=== PATIENT | female | born 1985 | race Caucasian/White ===

== ENCOUNTER 2017-10-12 08:25 | Emergency (ER) | payer MEDICAID, OTHER ==
[2017-10-12] MEDS ORDERED: OXYCODONE-ACETAMINOPHEN 5-325 MG TABLET PO ONE (09:36)
[2017-10-12] MEDS ORDERED: PREDNISONE 20 MG TABLET PO ONE (09:36)
--- NOTE | 2017-10-12 09:42 | ER Document Report ---
HPI - HPI Patient complains to provider of: Left hip pain Onset: Other - 2-3 days Onset/Duration: Persistent Quality of pain: Sharp Pain Level: 3 Context: Patient states she developed chronic left hip pain after her last due to pubic symphysis dysfunction. Patient denies any new injury. Patient states she has a low back pain that radiates to left hip and down the lateral aspect of her left thigh. Patient denies any urinary retention or incontinence. Patient states that pain is in typical location of where she has had chronic pain in the past although it seems more severe this time. Patient states that she was recently cleaning a lot due to the holidays and feels that this activity aggravated her chronic pain. Associated Symptoms: Other - Low back, left hip pain Exacerbated by: Movement Relieved by: Denies Similar symptoms previously: Yes Recently seen / treated by doctor: No - ROS ROS below otherwise negative: Yes Systems Reviewed and Negative: Yes All other systems reviewed and negative - CONSTITUTIONAL Constitutional: DENIES: Fever, Chills - EENT EENT: DENIES: Sore Throat, Ear Pain, Eye problems - NEURO Neurology: DENIES: Headache, Weakness, Vision blurred, Dizzinesss / Vertigo - CARDIOVASCULAR Cardiovascular: DENIES: Chest pain - RESPIRATORY Respiratory: DENIES: Trouble Breathing, Coughing - GASTROINTESTINAL Gastrointestinal: DENIES: Abdominal Pain, Black / Bloody Stools - URINARY Urinary: DENIES: Dysuria - MUSCULOSKELETAL Musculoskeletal: REPORTS: Extremity pain - left hip and thigh, Back Pain - DERM Skin Color: Normal Skin Problems: None Past Medical History - General Information source: Patient - Social History Smoking Status: Never Smoker Chew tobacco use (# tins/day): No Frequency of alcohol use: None Drug Abuse: None Occupation: [employer] Family History: Reviewed & Not Pertinent Patient has suicidal ideation: No Patient has homicidal ideation: No Renal/ Medical History: Denies: Hx Peritoneal Dialysis Musculoskeltal Medical History: Reports Other - Pubic symphysis dysfunction Psychiatric Medical History: Reports: Hx Anxiety, Hx Bipolar Disorder, Hx Depression Surgical Hx: Negative - Immunizations Hx Diphtheria, Pertussis, Tetanus Vaccination: Yes Vertical Provider Document - CONSTITUTIONAL Agree With Documented VS: Yes Exam Limitations: No Limitations General Appearance: WD/WN, No Apparent Distress Notes: PHYSICAL EXAMINATION: GENERAL: Well-appearing, well-nourished and in no acute distress. HEAD: Atraumatic, normocephalic. EYES: sclera clear, anicteric, conjunctiva are normal. ENT: nares patent, Moist mucous membranes. NECK: Normal range of motion, supple no lymphadenopathy LUNGS: respirations unlabored HEART: Regular rate and rhythm without murmurs EXTREMITIES: Left anterior and lateral hip joint tenderness. Tenderness increases with left hip abduction. No dislocation. BACK: left lower lumbar paraspinal tenderness, no midline tenderness, no deformities or step-offs. No CVA tenderness. NEUROLOGICAL: Cranial nerves grossly intact. Normal speech, normal gait. No saddle anesthesia. PSYCH: Normal mood, normal affect. SKIN: Warm, Dry, normal turgor, no rashes or lesions noted. - INFECTION CONTROL TRAVEL OUTSIDE OF THE [place] IN LAST 30 DAYS: No - RESPIRATORY O2 Sat by Pulse Oximetry: 100 Course - Re-evaluation Re-evalutation: 10/12/17 09:37 The patient presents with low back pain without signs of spinal cord compression , cauda equina syndrome, infection, aneurysm, or other serious etiology. The patient is neurologically intact. Given the extremely risk of these diagnoses further testing and evaluation for these possibilities does not appear to be indicated at this time. Patient has been instructed to return if the symptoms worsen or change in any way. - Vital Signs Vital signs: Temp Pulse Resp BP Pulse Ox 98.5 F 82 16 107/72 100 10/12/17 08:29 10/12/17 08:29 10/12/17 08:29 10/12/17 08:29 10/12/17 08:29 Discharge - Discharge Clinical Impression: hx pubic symphysis dysfunction Radiculopathy Qualifiers: Spinal region: lumbosacral Qualified Code(s): M54.17 - Radiculopathy, lumbosacral region Condition: Stable Disposition: HOME, SELF-CARE Instructions: Family Physicians / Practices, Low Back Pain ([facility]), Oral Narcotic Medication ([facility]), Radiculopathy ([facility]), Steroid Medication Additional Instructions: Return immediately for any new or worsening symptoms Followup with your primary care provider, call tomorrow to make a followup appointment Do not take the pain medication with your Klonopin, take one medication or any other, not both medications together Follow-up with an network applications specialist for further evaluation Prescriptions: Oxycodone HCl/Acetaminophen [Percocet 5-325 mg Tablet] 1 tab PO ASDIR PRN #15 tablet PRN Reason: Prednisone [Deltasone 20 mg Tablet] 3 tab PO DAILY 4 Days tablet Forms: Return to Work Referrals: [facility] [Provider Group] - Follow up tomorrow
[2017-10-12 10:42] VITALS: BP 117/75
== END 2017-10-12 10:42 | disposition home or self-care (01) ==
LOC: ER 08:25
DX: M54.17 Radiculopathy, lumbosacral region (principal); M25.552 Pain in left hip; M54.5 Low back pain; M79.605 Pain in left leg
CPT/HCPCS: 99283; J7512

== ENCOUNTER 2019-09-12 09:53 | Emergency (ER) | payer SELFPAY ==
[2019-09-12] MEDS ORDERED: HYDROCODONE/ACETAMINOPHEN 5-325 MG TABLET PO ONE (10:26)
--- NOTE | 2019-09-12 10:27 | ER Document Report ---
ED Medical Screen (RME) - General Chief Complaint: Abscess Stated Complaint: POSSIBLE ABSCESS Time Seen by Provider: 09/12/19 10:22 Notes: Patient is a 34-year-old female presents emergency department with a chief complaint of right shoulder pain. Patient states that about 4 days ago she noticed that she had a knot on her back and the area has progressively gotten bigger. She also noticed some redness. She denies any fevers, body aches, chills or any other symptoms. Exam: Erythema and edema noted to right posterior shoulder. I have greeted and performed a rapid initial assessment of this patient. A comprehensive ED assessment and evaluation of the patient, analysis of test results and completion of medical decision making process will be conducted by an additional ED providers. TRAVEL OUTSIDE OF THE [place] IN LAST 30 DAYS: No - Related Data Allergies/Adverse Reactions: No Known Allergies Allergy (Verified 10/12/17 08:32) Past Medical History Renal/ Medical History: Denies: Hx Peritoneal Dialysis Psychiatric Medical History: Reports: Hx Anxiety, Hx Bipolar Disorder, Hx Depression - Immunizations Hx Diphtheria, Pertussis, Tetanus Vaccination: Yes Physical Exam - Vital signs Vitals: Temp Pulse Resp BP Pulse Ox 98.0 F 97 16 98/65 L 98 09/12/19 10:09/12/19 10:00 09/12/19 10:09/12/19 10:00 09/12/19 10:00 Course - Vital Signs Vital signs: Temp Pulse Resp BP Pulse Ox 98.0 F 97 16 98/65 L 98 09/12/19 10:09/12/19 10:00 09/12/19 10:00 09/12/19 10:00 09/12/19 10:00
--- NOTE | 2019-09-12 12:45 | RADIOLOGY REPORT (SQ) ---
EXAM DESCRIPTION: U/S EXTREMITY NONVASCULAR LTD COMPLETED DATE/TIME: 09/12/2019 12:24 pm REASON FOR STUDY: right shoulder; eval abscess? COMPARISON: None. TECHNIQUE: Static and real time chairez scale ultrasound Doppler spectral analysis, and color Doppler a cquired of the right posterior shoulder. LIMITATIONS: None. FINDINGS: At the site of the palpable abnormality, within the subcutaneous tissues of the right post erior shoulder, there is a heterogeneous structure that measures 9.2 x 9.8 x 5.8 mm. There is a track that extends from the structure into the adjacent subcutaneous soft tissues common Doppler there is increased flow adjacent to it. IMPRESSION: Heterogeneous structure within the subcutaneous soft tissues at the site of the palpable abnormality. Per the sales rep the area is erythematous and warm to the touch. The structure park sures approximately 9.2 x 9.8 x 5.8 mm and it appears solid. Differential considerations include an infected sebaceous cyst or an inflamed lymph node. TECHNICAL DOCUMENTATION: JOB ID: [id number] [email or web address]- All Rights Reserved Reading location - IP/workstation name: [email or web address]
[2019-09-12] MEDS ORDERED: LIDOCAINE 1% INJ-PF (10 MG/ML) 30 ML SDV ONE (13:59)
[2019-09-12] MEDS ORDERED: LIDOCAINE 1% INJ (10 MG/ML) 10 ML MDV INJ ONE ×2 (14:04)
--- NOTE | 2019-09-12 14:10 | ER Document Report ---
ED General - General Chief Complaint: abcess Stated Complaint: POSSIBLE ABSCESS Time Seen by Provider: 09/12/19 10:22 TRAVEL OUTSIDE OF THE [place] IN LAST 30 DAYS: No - HPI Notes: Patient presents with 4 days of growing well up on superior aspect of lateral left back. No fevers or chills no known medical problems no recent traumas or falls. - Related Data Allergies/Adverse Reactions: No Known Allergies Allergy (Verified 10/12/17 08:32) Past Medical History - Social History Smoking Status: Current Every Day Smoker Chew tobacco use (# tins/day): No Frequency of alcohol use: None Drug Abuse: None Family History: Reviewed & Not Pertinent Patient has suicidal ideation: No Patient has homicidal ideation: No Renal/ Medical History: Denies: Hx Peritoneal Dialysis Psychiatric Medical History: Reports: Hx Anxiety, Hx Bipolar Disorder, Hx Depression - Immunizations Hx Diphtheria, Pertussis, Tetanus Vaccination: Yes Review of Systems - Review of Systems Constitutional: No symptoms reported EENT: No symptoms reported Cardiovascular: No symptoms reported Respiratory: No symptoms reported Gastrointestinal: No symptoms reported Genitourinary: No symptoms reported Female Genitourinary: No symptoms reported Musculoskeletal: No symptoms reported Skin: See HPI Hematologic/Lymphatic: No symptoms reported Neurological/Psychological: No symptoms reported Physical Exam - Vital signs Vitals: Temp Pulse Resp BP Pulse Ox 98.0 F 97 16 98/65 L 98 09/12/19 10:00 09/12/19 10:00 09/12/19 10:00 09/12/19 10:00 09/12/19 10:00 - General General appearance: Appears well, Alert - HEENT Head: Normocephalic, Atraumatic - Respiratory Respiratory status: No respiratory distress Chest status: Nontender - Cardiovascular Rhythm: Regular Heart sounds: Normal auscultation Murmur: No - Back Back: Other - Patient has approximately 3 x 4 inch erythematous indurated area on lateral aspect of upper back. Minor tenderness palpation no sinus. No signs of trauma or lacerations. Course - Re-evaluation Re-evalutation: 09/12/19 14:[address] Olivarez after reading radiologist read. He states that after reviewing ultrasound this is indicative of an abscess. He recommended to perform I&D at bedside at this time. 09/12/19 14:43 I&D performed at bedside using ultrasonic guidance per procedure note. No com plications. Patient appears to have overlying cellulitis will place on 5 days of Bactrim. Return precautions provided. Wound site bandaged by nursing staff. - Vital Signs Vital signs: Temp Pulse Resp BP Pulse Ox 98.7 F 70 20 100/62 99 09/12/19 13:22 09/12/19 13:22 09/12/19 13:22 09/12/19 13:22 09/12/19 13:22 Procedures - Incision and Drainage Right Upper Back Type: Simple Anesthetic type: 1% Lidocaine mL's of anesthetic: 4 Blade size: 11 I&D procedure: Chlorprep applied Incision Method: Incision made by scalpel Amount/type of drainage: 3 cc of bloody purulent discharge Discharge - Discharge Clinical Impression: Abscess of back Condition: Good Disposition: HOME, SELF-CARE Instructions: Abscess (OM), Trimethoprim-Sulfa ([facility]) Prescriptions: Sulfamethoxazole/Trimethoprim [Bactrim Ds Tablet] 1 each PO BID #10 tablet
[2019-09-12 15:06] VITALS: BP 105/69
== END 2019-09-12 14:57 | disposition home or self-care (01) ==
LOC: ER 09:53
PROC: 0H96XZZ Drainage of Back Skin, External Approach (ICD-10-PCS; principal; 2019-09-12)
DX: L02.212 Cutaneous abscess of back [any part, except buttock and flank] (principal); F17.200 Nicotine dependence, unspecified, uncomplicated
CPT/HCPCS: 76882; 99283